=== PATIENT | male | born 1990 | race Caucasian/White ===

== ENCOUNTER → 2023-06-06 16:20 | Outpatient (BNVA) | payer OTHER, SELFPAY | PROVIDERS: Visit Provider Nurse Practitioner | DX: M54.50 Low back pain, unspecified (principal); K92.1 Melena | CPT/HCPCS: 80053; 81000; 84443; 85025 ==

== ENCOUNTER 2023-06-15 08:55 | Outpatient (CLI) | payer OTHER, SELFPAY ==
--- NOTE | 2023-06-15 09:00 | US_ITS ---
WS: [id number] ULTRASOUND ABDOMEN CLINICAL INFORMATION: R74.8 - Abnormal levels of other serum enzymes COMPARISON: None. FINDINGS: Liver Size: Mild hepatomegaly Craniocaudal length: 16.6 cm. Echogenicity: Coarse Surface nodularity: None. Mass (size and location): None. Bile ducts Intrahepatic ducts: Normal. Common bile duct diameter: 0.3 cm. Gallbladder Normal. Gallstones: None. Gallbladder sludge: None. Gallbladder wall thickening: None. Pericholecystic fluid: None. Sonographic Fraser sign: Absent. Pancreas Normal as visualized. Spleen Splenomegaly: None. Craniocaudal length: 10.1 cm. Right kidney: Normal. Hydronephrosis: None. Size: 10.2 cm x 5.0 cm x 4.5 cm Left kidney: Normal. Hydronephrosis: None. Size: 10.9 cm x 5.3 cm x 4.8 cm. Abdominal aorta and IVC Visualized portions are normal. Ascites: None. IMPRESSION: 1. Mild hepatomegaly diffuse fatty infiltration. 2. Normal gallbladder. Normal common bile duct. 3. No hydronephrosis in either kidney.
== END 2023-06-15 08:56 | disposition home or self-care (01) ==
LOC: RAD 08:55
PROVIDERS: Visit Provider Nurse Practitioner
DX: R74.8 Abnormal levels of other serum enzymes (principal); K76.0 Fatty (change of) liver, not elsewhere classified
CPT/HCPCS: 76700